=== PATIENT | female | born 1950 | race Caucasian/White ===

== ENCOUNTER 2017-12-01 11:53 | Day surgery (SDC) | payer MEDICARE ==
[2017-12-01] MEDS ORDERED: LACTATED RINGERS 1,000 ML IV ONE ×2 (12:30→13:29)
--- NOTE | 2017-12-01 12:34 | ANESTHESIA ---
Pre-Anesthesia VS, & Labs - Diagnosis positive cologard - Procedure colonoscopy Vital Signs: Temp Pulse Resp BP Pulse Ox 36.6 C 20 172/95 H 97 12/01/17 12:13 12/01/17 12:13 12/01/17 12:13 12/01/17 12:13 Height 5 ft 9 in Weight (kg) 89.8 kg - NPO >8 hours - Is Patient ?: Not Applicable - Lab Results Lab results reviewed: Yes Home Medications and Allergies Allergies/Adverse Reactions: Allergies Allergy/AdvReac Type Severity Reaction Status Date / Time acetaminophen [From Percocet] Allergy Itching Verified 12/01/17 12:18 azithromycin [From Zithromax] Allergy Rash Verified 12/01/17 12:18 nitrofurantoin Allergy Respiratory Verified 12/01/17 12:18 [From Macrodantin] oxycodone [From Percocet] Allergy Itching Verified 12/01/17 12:18 Sulfa (Sulfonamide Allergy Itching Verified 12/01/17 12:18 Antibiotics) Anes History & Medical History - Anesthetic History Family history of Anesthesia Complications: Denies Family history of Malignant Hyperthermia: Denies - Medical History Cardiovascular: reports: None Pulmonary: reports: None Gastrointestinal: reports: Chronic constipation Urinary: reports: None Musculoskeletal: reports: None Endocrine/Autoimmune: reports: None Skin: reports: None - Surgical History Orthopedic: Other Exam General: Alert, Oriented x3, Cooperative, No acute distress Dental: Other (caps) Mouth Openin Fingerbreadth Neck Mobility: Normal Mallampati classification: II Thyromental Distance: greater than 6 cm Respiratory: Lungs clear, Normal breath sounds, No respiratory distress, No accessory muscle use Cardiovascular: Regular rate, Normal S1, Normal S2, No murmurs Mental/Cognitive Status: Alert/Oriented X3, Normal for patient Plan Anesthesia Type: MAC Consent for Procedure(s) Verified and Reviewed: Yes Code Status: Attempt Resuscitation ASA classification: 2-Mild systemic disease Is this case an emergency?: No
[2017-12-01] MEDS ORDERED: LIDOCAINE-MPF 2% 5 ML VIAL IM ONE (13:30)
[2017-12-01] MEDS ORDERED: PROPOFOL 200 MG/20 ML VIAL IVP ONE (13:30)
[2017-12-01 14:17] VITALS: BP 146/69
== END 2017-12-01 11:54 | disposition home or self-care (01) ==
LOC: SDS 11:53
PROVIDERS: ATTEND Surgery
PROC: 0DBE8ZX Excision of Large Intestine, Via Natural or Artificial Opening Endoscopic, Diagnostic (ICD-10-PCS; 2017-12-01)
PROC: 0DBP8ZX Excision of Rectum, Via Natural or Artificial Opening Endoscopic, Diagnostic (ICD-10-PCS; principal; 2017-12-01 13:00)
DX: K63.5 Polyp of colon (principal); D12.2 Benign neoplasm of ascending colon; K62.1 Rectal polyp; K59.09 Other constipation; I10 Essential (primary) hypertension; E78.5 Hyperlipidemia, unspecified; K21.9 Gastro-esophageal reflux disease without esophagitis; M35.9 Systemic involvement of connective tissue, unspecified; G35 Multiple sclerosis; Z79.51 Long term (current) use of inhaled steroids; Z79.82 Long term (current) use of aspirin; Z79.52 Long term (current) use of systemic steroids; Z87.891 Personal history of nicotine dependence
CPT/HCPCS: 45380; J7120

== ENCOUNTER 2018-04-03 16:41 | Outpatient (CLI) | payer MEDICARE ==
--- NOTE | 2018-04-05 14:33 | Ultrasound Report ---
Reason: UNSPECIFIED OPEN WOUND,LEFT LOWER LEG,INITIAL ENCO Procedure Date: 04/03/2018 Accession Number: [id number] / [id number] Procedure: US - Duplex Ext Veins Left CPT Code: FULL RESULT: EXAM: LEFT LOWER EXTREMITY VENOUS ULTRASOUND EXAM DATE: 04/03/2018 06:26 PM. CLINICAL HISTORY: UNSPECIFIED OPEN Wound, left LOWER Leg, initial ENCO. COMPARISON: None. TECHNIQUE: Real-time sonographic vascular imaging was performed by the unit support representative through the lower extremity utilizing both color-flow and Doppler spectral analysis. Multiple direct sales representative static images were saved for review. FINDINGS: Common Femoral Vein (CFV): Normal. CFV-GSV Junction: Normal. Profunda Femoral Vein (PFV): Normal. Femoral Vein (FV) Prox: Normal. Femoral Vein (FV) Mid: Normal. Femoral Vein (FV) Dist: Normal. Popliteal Vein: Normal. Posterior Tibial Veins: Normal. Peroneal Veins: Normal. Contralateral Side CFV: Normal. Other: None. IMPRESSION: No evidence for deep venous thrombosis. RADIA
--- NOTE | 2018-04-06 15:18 | Ultrasound Report ---
Reason: UNSPECIFIED OPEN WOUND,LEFT LOWER LEG,INITIAL ENCO Procedure Date: 04/03/2018 Accession Number: [id number] / [id number] Procedure: US - Duplex Lwr Ext Arterial LT CPT Code: FULL RESULT: EXAM: LEFT LOWER EXTREMITY ARTERIAL DOPPLER ULTRASOUND EXAM DATE: 04/03/2018 06:09 PM. CLINICAL HISTORY: Unspecified open wound, left lower leg, initial encounter. COMPARISON: None. TECHNIQUE: Real-time sonographic vascular imaging was performed by the billet recorder, utilizing color-flow, Doppler flow, and spectral analysis. Multiple community health program representative static images were saved for review. FINDINGS: LEFT: DEVELOPMENT ASSOCIATE: 70.8 cm/sec. PSFA: 94.7 cm/sec. MSFA: 97.0 cm/sec. DSFA: 103.2 cm/sec. PFA: 109.3 cm/sec. POP: 49.5 cm/sec. NEWTON: 54.8 cm/sec. BRAND ADVOCATE: 31.0 cm/sec. PER: 87.7 cm/sec. DPA: 67.8 cm/sec. SYSTOLIC PRESSURES: BRACHIAL: Right 146/70, Left 157/85 ANKLE: Right 140/71, Left 170/76 ANKLE/ARM INDEX: Right 0.89, Left 1.08 IMPRESSION: No flow limiting stenosis seen in the left lower extremity by ultrasound imaging. RADIA
== END 2018-04-03 16:42 | disposition home or self-care (01) ==
LOC: DI 16:41
PROVIDERS: ATTEND Orthopaedic Surgery Sports Medicine
DX: S81.802A Unspecified open wound, left lower leg, initial encounter (principal)
CPT/HCPCS: 93922

== ENCOUNTER 2018-05-13 11:30 | Outpatient (CLI) | payer MEDICARE ==
[2018-05-13 19:37] LABS: BASOPHILS # (AUTO) 0.1 10^3/uL (0.0-0.1); BASOPHILS % (AUTO) 0.9 %; EOSINOPHILS # (AUTO) 0.8 10^3/uL (0.0-0.7); EOSINOPHILS % (AUTO) 10.9 %; HGB - HEMOGLOBIN 14.2 g/dL (12.0-16.0); LYMPHOCYTES # (AUTO) 2.7 10^3/uL (1.5-3.5); LYMPHOCYTES % (AUTO) 35.1 %; MEAN CORPUSCULAR HEMOGLOBIN 33.2 pg (27.0-31.0); MEAN CORPUSCULAR HGB CONC 33.2 g/dL (32.0-36.0); MEAN PLATELET VOLUME 8.1 fL (7.9-10.8); MONOCYTES # (AUTO) 0.6 10^3/uL (0.0-1.0); MONOCYTES % (AUTO) 7.7 %; NEUTROPHILS # (AUTO) 3.5 10^3/uL (1.5-6.6); NEUTROPHILS % (AUTO) 45.4 %; PLT - PLATELET COUNT 341 10^3/uL (130-450); RED BLOOD COUNT 4.28 10^6/uL (4.20-5.40); WHITE BLOOD COUNT 7.7 x10^3/uL (4.8-10.8)
[2018-05-13 19:57] LABS: HB2 TOTAL 15.4 g/dL; HEMOGLOBIN A1C 0.65 g/dL
[2018-05-13 20:16] LABS: ALBUMIN 4.2 g/dL (3.2-5.5); ALBUMIN/GLOBULIN RATIO 1.2 (1.0-2.2); ALKALINE PHOSPHATASE 79 IU/L (42-121); ALT ALANINE AMINOTRANSFERASE 30 IU/L (10-60); AST ASPARTATE AMINOTRANSFERASE 34 IU/L (10-42); BILIRUBIN,TOTAL 0.6 mg/dL (0.2-1.0); BUN - BLOOD UREA NITROGEN 21 mg/dL (6-20); CALCIUM 9.5 mg/dL (8.5-10.3); CARBON DIOXIDE - CO2 27 mmol/L (21-32); CHLORIDE 97 mmol/L (101-111); CHOLESTEROL 218 mg/dL; CREATININE 0.7 mg/dL (0.4-1.0); GFR - MDRD 84 (>89); GLUCOSE 99 mg/dL (70-100); HDL CHOLESTEROL 44 mg/dL; LDL CHOLESTEROL,CALCULATED 103 mg/dL; LDL/HDL RATIO 2.3 (<4.4); SODIUM 136 mmol/L (135-145); TOTAL PROTEIN 7.8 g/dL (6.7-8.2); VLDL CHOLESTEROL 71 mg/dL
== END 2018-05-13 11:31 | disposition home or self-care (01) ==
LOC: LAB.WCP 11:30
PROVIDERS: ATTEND Family Medicine
DX: I10 Essential (primary) hypertension (principal); E78.5 Hyperlipidemia, unspecified; R73.01 Impaired fasting glucose
CPT/HCPCS: 36415; 80053; 80061; 83036; 83721; 84443; 85025

== ENCOUNTER 2018-09-15 13:34 | Outpatient (CLI) | payer MEDICARE ==
--- NOTE | 2018-09-16 08:28 | Mammography Report ---
Reason: SCREENING MAMMOGRAM FOR BREAST CANCER Procedure Date: 09/15/2018 Accession Number: [id number] / [id number] Procedure: WEN - Screening Mammo w/Jamel CPT Code: FULL RESULT: EXAM: Screening Mammo w/Jamel DATE: 09/15/2018 2:28 PM CLINICAL HISTORY: Screening encounter. History of late childbearing. TECHNIQUE: (B) - Bilateral CC and MLO views were obtained. COMPARISON: 09/27/2015 and 05/03/2010. PARENCHYMAL PATTERN: (A) - The breast(s) demonstrate(s) scattered fibroglandular densities. FINDINGS: There are coarse typically benign calcifications. There are no suspicious masses, calcifications, or areas of distortion. IMPRESSION: Benign findings. BI-RADS category 2. RECOMMENDATION: (ANNUAL) - Recommend routine annual screening mammography. BI-RADS CATEGORY: (2) - Benign Findings. STANDARD QUALIFYING STATEMENTS: 1. This examination was not reviewed with the aid of Computer-Aided Detection (CAD). 2. A negative or benign imaging report should not preclude biopsy if clinically suspicious findings are present. 3. Dense breasts may obscure an underlying neoplasm. 4. This examination was reviewed with the aid of 3D breast imaging (tomosynthesis).
== END 2018-09-15 13:35 | disposition home or self-care (01) ==
LOC: DI 13:34
PROVIDERS: ATTEND Family Medicine
DX: Z12.31 Encounter for screening mammogram for malignant neoplasm of breast (principal); Z78.0 Asymptomatic menopausal state
CPT/HCPCS: 77063; 77067

== ENCOUNTER 2018-09-15 13:36 | Outpatient (CLI) | payer MEDICARE ==
--- NOTE | 2018-09-16 09:10 | DEXA Report ---
Reason: POSTMENOPAUSAL STATUS Procedure Date: 09/15/2018 Accession Number: [id number] / [id number] Procedure: DEX - Dexa Spine and/or Hip CPT Code: FULL RESULT: EXAM: Dexa Spine and/or Hip DATE: 09/15/2018 2:39 PM CLINICAL HISTORY: POSTMENOPAUSAL STATUS TECHNIQUE: Dual energy x-ray absorptiometry (DXA) was performed on a [employer] System. Regions measured are the AP Spine, femoral neck, and if needed forearm. COMPARISON: None. In accordance with the International Society for Clinical Densitometry (ISCD) guidelines, data from previous exams may be reanalyzed using current recommendations and techniques. This is done to allow a more accurate basis for comparison with the current study. FINDINGS: The data for the lumbar spine is as follows: BMD (g/cm/cm) T-SCORE Z-SCORE REGION L1 1.099 -0.3 0.4 L2 1.158 -0.4 0.3 L3 1.289 0.7 1.4 L4 1.323 1.0 1.7 TOTAL 1.225 0.4 1.1 NOTE: All evaluable vertebrae are used for classification The data for the hip is as follows: BMD (g/cm/cm) T-SCORE Z-SCORE REGION Neck 0.921 -0.8 0.1 TOTAL 0.948 -0.5 0.1 NOTE: The femoral neck or total proximal femur, whichever is lowest, is used for classification. IMPRESSION: THE WHO CLASSIFICATION BASED ON THE INTERNATIONAL REFERENCE STANDARD IS NORMAL. THE FRACTURE RISK IS NOT INCREASED. RECOMMENDATION: Patients with diagnosis of osteoporosis or osteopenia should have regular bone mineral density assessment. For those eligible for Medicare, routine testing is allowed once every 2 years. Testing frequency can be increased for patients who have rapidly progressing disease or for those who are receiving medical therapy to restore bone mass. COMMENT: World Health Organization (WHO) definitions for osteoporosis and osteopenia: NORMAL BMD: T-score at -1.0 or higher, fracture risk is low OSTEOPENIA BMD: T-score between -1.0 and -2.5, fracture risk is increased. OSTEOPOROSIS BMD: T-score at -2.5 or lower, fracture risk is high. National Osteoporosis Foundation recommends: 1. Obtain adequate dietary calcium (at least 1200 mg per day) and vitamin D (400-800 international units per day). 2. Participate, as appropriate, in regular weightbearing and muscle-strengthening exercise. 3. Avoid tobacco use and reduce alcohol and caffeine intake. 4. For more detailed information see the website at www.NOF.org.
== END 2018-09-15 13:37 | disposition home or self-care (01) ==
LOC: DI 13:36
PROVIDERS: ATTEND Family Medicine
DX: Z78.0 Asymptomatic menopausal state (principal)
CPT/HCPCS: 77080

== ENCOUNTER 2018-10-26 10:52 | Outpatient (CLI) | payer MEDICARE ==
--- NOTE | 2018-10-27 08:10 | XRAY Report ---
Reason: UNSPECIFIED OPEN WOUND,LOW LEG (TIB/FIB) Procedure Date: 10/26/2018 Accession Number: [id number] / [id number] Procedure: XR - Tib/Fib LT CPT Code: FULL RESULT: EXAM: LEFT TIBIA/FIBULA RADIOGRAPHY EXAM DATE: 10/26/2018 11:27 AM. CLINICAL HISTORY: UNSPECIFIED OPEN Wound, low LEG (TIB/FIB). Open wound on the lower leg/wound is located medial side of the ankle. COMPARISON: None. TECHNIQUE: 2 views. FINDINGS: Bones: Normal. No fracture or bone lesion. Joints: The visualized knee and ankle joints are normal. No effusions. No radiopaque foreign body. Soft Tissues: Normal. No soft tissue swelling. IMPRESSION: Normal tibia/fibula radiography. RADIA
== END 2018-10-26 10:53 | disposition home or self-care (01) ==
LOC: DI 10:52
PROVIDERS: ATTEND Family Medicine
DX: S81.802D Unspecified open wound, left lower leg, subsequent encounter (principal)

== ENCOUNTER 2018-11-10 12:14 | Outpatient (CLI) | payer MEDICARE ==
[2018-11-10] MEDS ORDERED: GADOBUTROL 10 MMOL/10 ML VIAL ONE (13:07)
[2018-11-10] MEDS: GADOBUTROL 10 MMOL/10 ML VIAL IVP ONE ×2 (14:57→15:47)
--- NOTE | 2018-11-11 14:07 | MRI Report ---
Reason: UNSPEC OPEN WOULD, UNSPECIFIED LOWER LEG Procedure Date: 11/10/2018 Accession Number: [id number] / [id number] Procedure: MRI - Ankle LT W/WO CPT Code: FULL RESULT: EXAM: LEFT ANKLE/HINDFOOT MRI WITHOUT AND WITH CONTRAST EXAM DATE: 11/10/2018 01:18 PM. CLINICAL HISTORY: Open wound. Possible osteomyelitis. COMPARISON: MR LOWER EXTREMITY WO 02/13/2018 2:37 PM. TECHNIQUE: Multiplanar, multisequence T1-weighted and fluid-sensitive sequences of the ankle before and after administration of intravenous contrast. IV contrast: Gadavist, 10 mL. Other: None. FINDINGS: Bones: No fractures or subluxations. No marrow edema or abnormal enhancement. No bone lesions. Articular Cartilage: Unremarkable. Ligaments: The anterior and posterior tibiofibular, anterior and posterior talofibular, and calcaneofibular ligaments are intact. The deep and superficial deltoid and spring ligaments are intact. Anterior Tendons: The tibialis anterior, extensor hallucis longus, and extensor digitorum longus tendons are unremarkable. Medial Tendons: The tibialis posterior, flexor digitorum longus, and flexor hallucis longus tendons are unremarkable. Lateral Tendons: The peroneus brevis and longus are unremarkable. Achilles Tendon: The Achilles tendon is unremarkable. Musculature: No edema or fatty atrophy. Other: There is extensive subcutaneous edema mainly in the medial aspect of the distal calf suggestive of inflammation. There is some lateral subcutaneous edema as well. The skin wound mentioned in the clinical history is not clearly visualized. The anterolateral capsule is lax, suggestive of a prior partial-thickness tear. The contents of the sinus tarsi and tarsal tunnel are unremarkable. No plantar fasciitis. The subcutaneous tissues are unremarkable. No abscess or cellulitis. IMPRESSION: 1. Small joint effusion. Laxity of the anterolateral capsule suggestive of a prior partial-thickness tear. 2. Subcutaneous edema mainly in the medial aspect of the calf, suggestive of inflammation. RADIA
--- NOTE | 2018-11-11 14:13 | MRI Report ---
Reason: UNSPECIFIED OPEN WOUND UNSPECIFIED LOWER LEG Procedure Date: 11/10/2018 Accession Number: [id number] / [id number] Procedure: MRI - Lower Leg (Tib-Fib) LT W/WO CPT Code: FULL RESULT: EXAM: LEFT CALF/TIBIA MRI WITHOUT AND WITH CONTRAST EXAM DATE: 11/10/2018 02:02 PM. CLINICAL HISTORY: Open wound in the left leg. ?Osteomyelitis. COMPARISON: MR LOWER EXTREMITY WO 02/13/2018. TECHNIQUE: Multiplanar, multisequence T1-weighted and fluid-sensitive sequences of the calf/tibia before and after administration of intravenous contrast. IV contrast: 10 mL of Gadavist. Other: None. FINDINGS: Bones: No fractures or subluxations. No marrow edema or abnormal enhancement. No bone lesions. Joint Spaces: Visualized portions of the ankle and knee joints are unremarkable. Tendons: Where visualized, the Achilles and plantaris tendons are intact. Musculature: No edema, enhancement, or fatty atrophy. Other: There is a focus of low T1 and intermediate T2 signal in the medial subcutaneous tissues overlying the medial surface of the distal tibia. The findings are consistent with the skin wound mentioned in the clinical history. There is edema and enhancement of the subcutaneous tissues overlying the medial aspect of the middle third of the tibia, which may indicate cellulitis. There is no appreciable abscess. There is mild lateral subcutaneous edema as well. IMPRESSION: Possible cellulitis associated with the medial skin wound. No abscess or osteomyelitis. RADIA
== END 2018-11-10 12:15 | disposition home or self-care (01) ==
LOC: DI 12:14
PROVIDERS: ATTEND Family Medicine
DX: S81.802D Unspecified open wound, left lower leg, subsequent encounter (principal); M25.472 Effusion, left ankle; R60.0 Localized edema
CPT/HCPCS: 73720; 73723; A9585

== ENCOUNTER 2019-10-15 09:14 | Outpatient (CLI) | payer MEDICARE ==
--- NOTE | 2019-10-15 14:00 | XRAY Report ---
PROCEDURE: Knee 2 View LT INDICATIONS: KNEE PAIN HIP PAIN LEFT TECHNIQUE: 2 views of the left knee(s) were acquired. COMPARISON: None. FINDINGS: Bones: No fractures or dislocations. No suspicious bony lesions. Mild medial and patellofemoral com partment osteoarthritis. Soft tissues: No joint effusion. No suspicious soft tissue calcifications. IMPRESSION: 1. Mild osteoarthritis. 2. No acute osseous lesion. If there is continued clinical concern for pathology, then repeat advanc ed imaging (CT, MR, bone scan) should be considered for further evaluation. Reviewed by: Johana Frazier MD, PhD on 10/15/2019 1:58 PM PDT Approved by: Johana Frazier MD, PhD on 10/15/2019 1:58 PM PDT Station ID: [id number]
--- NOTE | 2019-10-15 14:02 | XRAY Report ---
PROCEDURE: Pelvis 1 View INDICATIONS: KNEE PAIN HIP PAIN LEFT TECHNIQUE: 1 view(s) of the pelvis acquired. COMPARISON: None. FINDINGS: Bones: No fractures or dislocations. No suspicious bony lesions. Mild osseous hypertrophy noted in the hips bilaterally compatible with mild osteoarthritis. Soft tissues: Visualized bowel gas pattern is normal. No suspicious soft tissue calcifications. IMPRESSION: 1. Mild bilateral hip osteoarthritis. 2. No acute osseous lesion. If there is continued clinical concern for pathology, then repeat advance d imaging (CT, MR, bone scan) should be considered for further evaluation. Reviewed by: Johana Frazier MD, PhD on 10/15/2019 2:00 PM PDT Approved by: Johana Frazier MD, PhD on 10/15/2019 2:00 PM PDT Station ID: [id number]
== END 2019-10-15 09:15 | disposition home or self-care (01) ==
LOC: DI 09:14
PROVIDERS: ATTEND Family Medicine
DX: M17.12 Unilateral primary osteoarthritis, left knee (principal); M16.0 Bilateral primary osteoarthritis of hip
CPT/HCPCS: 72170

== ENCOUNTER 2019-12-25 11:25 | Outpatient (CLI) | payer MEDICARE ==
--- NOTE | 2019-12-25 15:44 | XRAY Report ---
PROCEDURE: Ankle 3 View BILAT INDICATIONS: WEIGHTBEARING - LEFT ANKLE PAIN TECHNIQUE: 3 views of the ankle were acquired. COMPARISON: Left lower leg radiographs 10/26/2018 FINDINGS: Bones: No acute fractures or dislocations. Small well-corticated density body at the inferior aspec t of the right lateral malleolus, likely sequela of remote trauma versus unfused ossicle. Ankle morti se is normally aligned. No suspicious bony lesions. Soft tissues: No tibiotalar joint effusion. Achilles tendon appears normal. IMPRESSION: No acute bony abnormality. Reviewed by: Jonn Nieves on 12/25/2019 2:42 PM ROEL Approved by: Jonn Nieves on 12/25/2019 2:42 PM ROEL Station ID: [id number]
== END 2019-12-25 11:26 | disposition home or self-care (01) ==
LOC: DI.S 11:25
PROVIDERS: ATTEND Physician Assistant
DX: M25.572 Pain in left ankle and joints of left foot (principal); M25.571 Pain in right ankle and joints of right foot

== ENCOUNTER 2020-01-12 08:00 | Outpatient (CLI) | payer MEDICARE | END 2020-01-12 23:59 | disposition home or self-care (01) | LOC: LAB.R 08:00 | PROVIDERS: ATTEND Emergency Medicine | DX: N31.9 Neuromuscular dysfunction of bladder, unspecified (principal) | CPT/HCPCS: 87086 ==

== ENCOUNTER 2020-06-12 08:00 | Outpatient (CLI) | payer MEDICARE | END 2020-06-12 23:59 | disposition home or self-care (01) | LOC: LAB.R 08:00 | PROVIDERS: ATTEND Physician Assistant Medical | DX: R35.0 Frequency of micturition (principal) | CPT/HCPCS: 87086 ==

== ENCOUNTER 2020-06-19 08:00 | Outpatient (CLI) | payer MEDICARE ==
[2020-06-19 18:38] LABS: BASOPHILS % (AUTO) 0.7 %; EOSINOPHILS # (AUTO) 0.2 10^3/uL (0.0-0.7); EOSINOPHILS % (AUTO) 2.5 %; HCT - HEMATOCRIT 38.3 % (37.0-47.0); HGB - HEMOGLOBIN 12.4 g/dL (12.0-16.0); LYMPHOCYTES % (AUTO) 32.6 %; MEAN CORPUSCULAR HEMOGLOBIN 33.1 pg (27.0-31.0); MEAN CORPUSCULAR HGB CONC 32.4 g/dL (32.0-36.0); MEAN CORPUSCULAR VOLUME 102.1 fL (81.0-99.0); MEAN PLATELET VOLUME 9.8 fL (7.9-10.8); MONOCYTES # (AUTO) 0.7 10^3/uL (0.0-1.0); MONOCYTES % (AUTO) 10.8 %; NEUTROPHILS # (AUTO) 3.2 10^3/uL (1.5-6.6); NEUTROPHILS % (AUTO) 53.2 %; PLT - PLATELET COUNT 324 10^3/uL (130-450); RED BLOOD COUNT 3.75 10^6/uL (4.20-5.40); RED CELL DISTRIBUTION WIDTH 12.3 % (12.0-15.0)
[2020-06-19 19:16] LABS: ALBUMIN 4.5 g/dL (3.2-5.5); ALBUMIN/GLOBULIN RATIO 1.5 (1.0-2.2); ALKALINE PHOSPHATASE 59 IU/L (42-121); ALT ALANINE AMINOTRANSFERASE 17 IU/L (10-60); AST ASPARTATE AMINOTRANSFERASE 23 IU/L (10-42); BILIRUBIN,TOTAL 0.4 mg/dL (0.2-1.0); BUN - BLOOD UREA NITROGEN 32 mg/dL (6-20); CALCIUM 9.5 mg/dL (8.5-10.3); CARBON DIOXIDE - CO2 25 mmol/L (21-32); CHLORIDE 102 mmol/L (101-111); CHOL/HDL RATIO 4.1 (<4.4); CHOLESTEROL 179 mg/dL; CREATININE 0.7 mg/dL (0.4-1.0); GFR - MDRD 83 (>89); GLUCOSE 84 mg/dL (70-100); HDL CHOLESTEROL 44 mg/dL; LDL CHOLESTEROL,CALCULATED 109 mg/dL; LDL/HDL RATIO 2.5 (<4.4); POTASSIUM 3.9 mmol/L (3.5-5.0); SODIUM 139 mmol/L (135-145); TOTAL PROTEIN 7.6 g/dL (6.7-8.2); TRIGLYCERIDES 132 mg/dL; URIC ACID 5.2 mg/dL (2.6-7.2); VLDL CHOLESTEROL 26 mg/dL
[2020-06-19 19:43] LABS: CRP - C-REACTIVE PROTEIN < 1.0 mg/dL (0-1.0)
[2020-06-19 20:09] LABS: ESTIMATED AVERAGE GLUCOSE 114 mg/dL (70-100); HEMOGLOBIN A1c% 5.6 % (4.27-6.07)
== END 2020-06-19 23:59 | disposition home or self-care (01) ==
LOC: LAB.WCP 08:00
PROVIDERS: ATTEND Family Medicine
DX: R73.01 Impaired fasting glucose (principal); E78.5 Hyperlipidemia, unspecified; M25.50 Pain in unspecified joint
CPT/HCPCS: 36415; 80053; 80061; 83036; 83721; 84550; 85025; 85651; 86140

== ENCOUNTER 2021-02-05 09:44 | Outpatient (CLI) | payer MEDICARE | END 2021-02-05 09:45 | disposition home or self-care (01) | LOC: LAB.S 09:44 | PROVIDERS: ATTEND Psychiatry & Neurology Neurology | DX: G60.9 Hereditary and idiopathic neuropathy, unspecified (principal) | CPT/HCPCS: 36415; 83883 ==

== ENCOUNTER 2021-03-08 14:52 | Outpatient (CLI) | payer MEDICARE | END 2021-03-08 14:53 | disposition home or self-care (01) | LOC: LAB.S 14:52 | PROVIDERS: ATTEND Family Medicine | DX: Z20.822 Contact with and (suspected) exposure to COVID-19 (principal) | CPT/HCPCS: 86769 ==

== ENCOUNTER 2021-04-22 14:31 | Outpatient (CLI) | payer MEDICARE ==
--- NOTE | 2021-04-22 15:43 | XRAY Report ---
PROCEDURE: Chest 2 View X-Ray INDICATIONS: COUGH TECHNIQUE: 2 view(s) of the chest. COMPARISON: None. FINDINGS: Surgical changes and devices: None. Lungs and pleura: Scattered peripheral groundglass infiltrates noted. Diffuse Chronic interstitial change present. Atherosclerotic vascular calcification noted in the aortic arch. Mediastinum: Mediastinal contours are normal. Heart size is normal. Bones and chest wall: No suspicious bony abnormalities. Soft tissues appear unremarkable. IMPRESSION: Scattered peripheral pulmonary infiltrates consistent with atypical or viral pneumonia Aortic atherosclerosis Reviewed by: Sushil Coelho MD on 04/22/2021 2:42 PM AKST Approved by: Sushil Coelho MD on 04/22/2021 2:42 PM AKST Station ID: [id number]
== END 2021-04-22 23:59 | disposition home or self-care (01) ==
LOC: DI.S 14:31
PROVIDERS: ATTEND Registered Nurse
DX: R91.8 Other nonspecific abnormal finding of lung field (principal); I70.0 Atherosclerosis of aorta; U07.1 COVID-19
CPT/HCPCS: 71046; U0004

== ENCOUNTER 2021-08-09 14:59 | Outpatient (CLI) | payer MEDICARE ==
[2021-08-09 20:31] LABS: THYROID STIMULATING HORMONE 2.42 uIU/mL (0.34-5.60)
[2021-08-11 05:11] LABS: DHEA-SULFATE 57.9 ug/dL (20.4-186.6)
[2021-08-11 14:08] LABS: FREE TESTOSTERONE(DIRECT) 0.7 pg/mL (0.0-4.2)
== END 2021-08-09 15:00 | disposition home or self-care (01) ==
LOC: LAB.S 14:59
PROVIDERS: ATTEND Internal Medicine
DX: L65.9 Nonscarring hair loss, unspecified (principal)
CPT/HCPCS: 36415; 82627; 84402; 84443

== ENCOUNTER 2021-08-21 08:00 | Outpatient (CLI) | payer MEDICARE ==
[2021-08-21 14:39] LABS: FECAL OCCULT BLOOD (FIT) NEGATIVE (NEGATIVE)
== END 2021-08-21 23:59 | disposition home or self-care (01) ==
LOC: LAB.S 08:00
PROVIDERS: ATTEND Physician Assistant
DX: R19.7 Diarrhea, unspecified (principal); Z12.11 Encounter for screening for malignant neoplasm of colon
CPT/HCPCS: 82274; 87045; 87046; 87177; 87328; 87329; 87427; 87493

== ENCOUNTER 2022-09-06 08:00 | Outpatient (CLI) | payer MEDICARE ==
[2022-09-08 15:08] LABS: GIARDIA LAMBLIA AG EIA Negative (Negative)
== END 2022-09-06 23:59 | disposition home or self-care (01) ==
LOC: LAB 08:00
PROVIDERS: ATTEND Physician Assistant
DX: R10.31 Right lower quadrant pain (principal); R10.11 Right upper quadrant pain; R19.7 Diarrhea, unspecified
CPT/HCPCS: 83993; 87177; 87329

== ENCOUNTER 2022-09-06 11:59 | Outpatient (CLI) | payer MEDICARE ==
[2022-09-06 14:27] LABS: BASOPHILS % (AUTO) 0.5 %; EOSINOPHILS # (AUTO) 0.1 10^3/uL (0.0-0.7); EOSINOPHILS % (AUTO) 1.7 %; HCT - HEMATOCRIT 36.8 % (37.0-47.0); HGB - HEMOGLOBIN 12.3 g/dL (12.0-16.0); LYMPHOCYTES # (AUTO) 2.9 10^3/uL (1.5-3.5); LYMPHOCYTES % (AUTO) 35.5 %; MEAN CORPUSCULAR HEMOGLOBIN 32.8 pg (27.0-31.0); MEAN CORPUSCULAR HGB CONC 33.4 g/dL (32.0-36.0); MEAN CORPUSCULAR VOLUME 98.1 fL (81.0-99.0); MEAN PLATELET VOLUME 9.8 fL (7.9-10.8); MONOCYTES # (AUTO) 0.8 10^3/uL (0.0-1.0); MONOCYTES % (AUTO) 10.3 %; NEUTROPHILS # (AUTO) 4.2 10^3/uL (1.5-6.6); NEUTROPHILS % (AUTO) 51.6 %; PLT - PLATELET COUNT 343 10^3/uL (130-450); RED BLOOD COUNT 3.75 10^6/uL (4.20-5.40); RED CELL DISTRIBUTION WIDTH 12.2 % (12.0-15.0); WHITE BLOOD COUNT 8.1 x10^3/uL (4.8-10.8)
[2022-09-06 14:54] LABS: ALBUMIN 4.2 g/dL (3.2-5.5); ALBUMIN/GLOBULIN RATIO 1.2 (1.0-2.2); BILIRUBIN,TOTAL 0.3 mg/dL (0.2-1.0); CALCIUM 9.3 mg/dL (8.5-10.3); CREATININE 0.8 mg/dL (0.4-1.0); POTASSIUM 3.7 mmol/L (3.5-5.0); TOTAL PROTEIN 7.8 g/dL (6.7-8.2)
[2022-09-06 15:01] LABS: THYROID STIMULATING HORMONE 1.98 uIU/mL (0.34-5.60)
== END 2022-09-06 12:00 | disposition home or self-care (01) ==
LOC: LAB.S 11:59
PROVIDERS: ATTEND Physician Assistant
DX: R10.31 Right lower quadrant pain (principal); R10.11 Right upper quadrant pain; R19.7 Diarrhea, unspecified
CPT/HCPCS: 36415; 80053; 83690; 84443; 85025; 86140

== ENCOUNTER 2022-09-28 11:35 | Outpatient (CLI) | payer MEDICARE ==
[2022-09-28] MEDS ORDERED: iohexoL-300 100 ML VIAL ONE (12:25)
[2022-09-28] MEDS ORDERED: DIATR MEGLU/DIATRIZOATE SODIUM 120 ML BOTTLE ONE (12:26)
[2022-09-28] MEDS ORDERED: iohexoL-300 100 ML VIAL IVP ONE (13:22)
[2022-09-28] MEDS ORDERED: DIATRIZOATE MEGLU/DIATRIZO SOD 30 ML BOTTLE PO ONE (13:23)
--- NOTE | 2022-09-28 21:35 | CT Report ---
PROCEDURE: ABDOMEN/PELVIS W INDICATIONS: ABD PAIN CONTRAST: 100ml omni 300 TECHNIQUE: After the administration of contrast, 5 mm thick sections acquired from the diaphragms to the symphys is. 5 mm thick coronal and sagittal reformats were acquired. For radiation dose reduction, the foll owing was used: automated exposure control, adjustment of mA and/or kV according to patient size. COMPARISON: None FINDINGS: Image quality: Excellent. Lung bases and heart: Unremarkable. Liver: No solid mass. The liver has a decreased density consistent with hepatic steatosis. Gallbladder and biliary tree: Normal gallbladder Spleen: No splenomegaly. Pancreas: No pancreatic ductal dilation. Adrenals: No adrenal nodule. Kidneys and ureters: No hydronephrosis. No renal cystic lesion which requires follow up. No solid mas s. Bowel and peritoneum: No bowel distension. No pathologic free fluid. Lymph nodes: No central or retroperitoneal adenopathy. Vessels: No infrarenal aortic aneurysm. PELVIS Reproductive organs: Unremarkable. Bladder: No abnormal wall thickening, accounting for underdistension. Pelvic lymph nodes: No pelvic adenopathy by size criteria. Bones: No aggressive osseous abnormality. Other: No significant ventral or inguinal hernia. IMPRESSION: 1. No acute abdominal or pelvic abnormality. 2. Hepatic steatosis. Reviewed by: Michi Arriaga on 09/28/2022 8:33 PM ROEL Approved by: Michi Arriaga on 09/28/2022 8:33 PM AKELISE Station ID: [id number]
== END 2022-09-28 11:36 | disposition home or self-care (01) ==
LOC: DI 11:35
PROVIDERS: ATTEND Physician Assistant
DX: K76.0 Fatty (change of) liver, not elsewhere classified (principal)
CPT/HCPCS: 74177; Q9963; Q9967

== ENCOUNTER 2023-02-24 09:45 | Outpatient (CLI) | payer MEDICARE | END 2023-02-24 23:59 | disposition home or self-care (01) | LOC: LAB.S 09:45 | PROVIDERS: ATTEND Registered Nurse | DX: R30.0 Dysuria (principal) | CPT/HCPCS: 87086 ==

== ENCOUNTER 2023-04-01 07:18 | Outpatient (CLI) | payer MEDICARE ==
[2023-04-01 15:15] LABS: BASOPHILS % (AUTO) 0.6 %; EOSINOPHILS # (AUTO) 0.3 10^3/uL (0.0-0.7); EOSINOPHILS % (AUTO) 3.9 %; HCT - HEMATOCRIT 38.6 % (37.0-47.0); HGB - HEMOGLOBIN 12.3 g/dL (12.0-16.0); LYMPHOCYTES # (AUTO) 2.3 10^3/uL (1.5-3.5); LYMPHOCYTES % (AUTO) 34.1 %; MEAN CORPUSCULAR HEMOGLOBIN 32.5 pg (27.0-31.0); MEAN CORPUSCULAR HGB CONC 31.9 g/dL (32.0-36.0); MEAN CORPUSCULAR VOLUME 102.1 fL (81.0-99.0); MEAN PLATELET VOLUME 9.7 fL (7.9-10.8); MONOCYTES # (AUTO) 0.7 10^3/uL (0.0-1.0); NEUTROPHILS # (AUTO) 3.3 10^3/uL (1.5-6.6); NEUTROPHILS % (AUTO) 50.2 %; PLT - PLATELET COUNT 347 10^3/uL (130-450); RED BLOOD COUNT 3.78 10^6/uL (4.20-5.40); RED CELL DISTRIBUTION WIDTH 12.3 % (12.0-15.0); WHITE BLOOD COUNT 6.6 x10^3/uL (4.8-10.8)
[2023-04-01 15:34] LABS: ALBUMIN 4.4 g/dL (3.2-5.5); ALBUMIN/GLOBULIN RATIO 1.6 (1.0-2.2); ALKALINE PHOSPHATASE 71 IU/L (42-121); ALT ALANINE AMINOTRANSFERASE 20 IU/L (10-60); AST ASPARTATE AMINOTRANSFERASE 23 IU/L (10-42); BILIRUBIN,TOTAL 0.4 mg/dL (0.2-1.0); BUN - BLOOD UREA NITROGEN 22 mg/dL (6-20); CALCIUM 9.4 mg/dL (8.5-10.3); CARBON DIOXIDE - CO2 29 mmol/L (21-32); CHLORIDE 103 mmol/L (101-111); CHOLESTEROL 210 mg/dL; CREATININE 0.8 mg/dL (0.6-1.3); GFR - MDRD 71 (>89); GLUCOSE 109 mg/dL (74-104); HDL CHOLESTEROL 42 mg/dL; LDL CHOLESTEROL,CALCULATED 113 mg/dL; LDL/HDL RATIO 2.7 (<4.4); POTASSIUM 4.2 mmol/L (3.5-4.5); SODIUM 138 mmol/L (135-145); TOTAL PROTEIN 7.2 g/dL (6.4-8.9); TRIGLYCERIDES 274 mg/dL (48-352); VLDL CHOLESTEROL 55 mg/dL
[2023-04-01 15:49] LABS: THYROID STIMULATING HORMONE 2.15 uIU/mL (0.34-5.60)
[2023-04-01 21:32] LABS: ESTIMATED AVERAGE GLUCOSE 123 mg/dL (70-100); HEMOGLOBIN A1c% 5.9 % (4.27-6.07)
== END 2023-04-01 07:19 | disposition home or self-care (01) ==
LOC: LAB.S 07:18
PROVIDERS: ATTEND Physician Assistant
DX: I10 Essential (primary) hypertension (principal); E78.5 Hyperlipidemia, unspecified; R73.01 Impaired fasting glucose; R53.83 Other fatigue
CPT/HCPCS: 36415; 80053; 80061; 83036; 83721; 84443; 85025